=== PATIENT | female | born 1965 | race Hispanic/Latino ===

== ENCOUNTER 2020-01-07 | Emergency (ER) | payer SELFPAY ==
[~2020-01-07] MED LIST: GLIPIZIDE10 M3 PO; HYDROCHLORO25 MG/TAB PO; LISINOP/HCTZ1 TAB PO; LOPID600 MG PO; LORTAB 7.5 PO; METFORMIN1000 MG PO; METFORMIN500 MG PO; MIRENA IU; NAPROXEN500 MG PO; NOVOLIN N1 ML SC; OXYCO/APAP1 TA5 OR; TRICOR145 MG PO; ZESTRIL5 MG PO
[2020-01-07] MEDS ORDERED: ATORVASTATIN CA10 MG PO (04:03)
[2020-01-07 04:52] LABS: HEMATOCRIT 38.1 % (37.0-47.0); HEMOGLOBIN 12.8 g/dl (12.0-16.0); IMMATURE GRANULOCYTES 0.3 % (0.0-5.0); MEAN CELL VOLUME 82.8 fL CALC (80.0-100.0); MEAN CORPUSCULAR HGB 27.8 pG CALC (26.0-32.0); MEAN CORPUSCULAR HGB CONC 33.6 g/dL CAL (32.0-36.0); NEUT# 8.55 thou/uL (2.00-7.15); RED BLOOD COUNT 4.6 mill/uL (4.20-5.60); RED CELL DISTRI WIDTH 13.6 % (11.5-15.5)
[2020-01-07] MEDS ORDERED: MIRALAX3350 N1 PO (04:55)
[2020-01-07 05:09] LABS: ALKALINE PHOSPHATASE 133 u/l (38-126); ANION GAP 19 (6-22 (CALC)); BILIRUBIN, TOTAL 0.7 mg/dL (0.0-1.4); BUN 7 mg/dL (7-17); BUN/CREATININE RATIO 16 (12-20 (CALC)); CARBON DIOXIDE 23 mmol/l (22-30); CHLORIDE 99 mmol/l (95-108); CREATININE 0.4 mg/dL (0.5-1.0); GFR > 60 ML/MIN (>=60 (CALC)); GFR FOR AFR.AMER. > 60 ML/MIN (>=60 (CALC)); POTASSIUM 3.9 mmol/l (3.5-5.1); SGOT/AST 36 u/l (14-36); SODIUM 138 mmol/l (137-146); TOTAL PROTEIN 8.2 g/dL (6.3-8.2)
[2020-01-07 05:17] LABS: ALBUMIN 4.9 g/dL (3.2-5.0)
== END 2020-01-07 05:55 | disposition home or self-care (01) | DRG 392 ==
PROVIDERS: Emergency Medicine
DX: K59.00 Constipation, unspecified (principal); E11.9 Type 2 diabetes mellitus without complications; I10 Essential (primary) hypertension; Z79.84 Long term (current) use of oral hypoglycemic drugs

== ENCOUNTER 2020-11-25 14:52 | Emergency (ER) | payer SELFPAY ==
[~2020-11-25] VITALS: Ht 152.4 cm; Wt 72.7 kg
[~2020-11-25 14:52] MED LIST changes: +ATORVASTATIN CA10 MG PO; +MIRALAX3350 N1 PO
[2020-11-25] MEDS ORDERED: BACTRIM DS1 TAB PO (15:14)
[2020-11-25] MEDS ORDERED: HYDROCO/APAP1 TA9 PO (15:57)
[2020-11-25] MEDS ORDERED: KEFLEX500 MG PO (15:57)
[2020-11-25 16:00] VITALS: BP 129/86
== END 2020-11-25 16:05 | disposition home or self-care (01) | DRG 603 ==
LOC: ED 14:52
PROC: 0H95XZZ Drainage of Chest Skin, External Approach (ICD-10-PCS; principal; 2020-11-25)
DX: L02.213 Cutaneous abscess of chest wall (principal); I10 Essential (primary) hypertension; E11.9 Type 2 diabetes mellitus without complications; Z79.4 Long term (current) use of insulin

== ENCOUNTER 2020-11-26 15:27 | Emergency (ER) | payer SELFPAY ==
[~2020-11-26] VITALS: Ht 152.4 cm; Wt 72.7 kg
[~2020-11-26 15:27] MED LIST changes: +BACTRIM DS1 TAB PO; +HYDROCO/APAP1 TA9 PO; +KEFLEX500 MG PO
[2020-11-26 16:30] VITALS: BP 127/82
== END 2020-11-26 16:30 | disposition home or self-care (01) | DRG 951 ==
LOC: ED 15:27
DX: Z48.01 Encounter for change or removal of surgical wound dressing (principal); E11.9 Type 2 diabetes mellitus without complications; I10 Essential (primary) hypertension; Z79.4 Long term (current) use of insulin

== ENCOUNTER 2020-11-27 23:53 | Emergency (ER) | payer SELFPAY ==
[~2020-11-27] VITALS: Ht 152.4 cm; Wt 73.0 kg
[2020-11-28] VITALS: BP 150/73
== END 2020-11-28 00:50 | disposition home or self-care (01) | DRG 603 ==
LOC: ED 23:53
PROC: 0H95XZZ Drainage of Chest Skin, External Approach (ICD-10-PCS; principal; 2020-11-28)
DX: L02.213 Cutaneous abscess of chest wall (principal); E11.9 Type 2 diabetes mellitus without complications; I10 Essential (primary) hypertension; Z79.4 Long term (current) use of insulin

== ENCOUNTER 2022-11-13 16:36 | Observation (INO) | payer SELFPAY ==
[~2022-11-13] VITALS: Ht 152.4 cm; Wt 70.1 kg
[2022-11-13] VITALS (21 sets, daily range): BP systolic 79–156; BP diastolic 50–88
[~2022-11-13 16:36] MED LIST changes: -ATORVASTATIN CA10 MG PO; +LIPITOR80 M1 PO
--- NOTE | 2022-11-13 17:20 | NUR ---
ASSUMED CARE OF THE PT AT THIS TIME
[2022-11-13 17:40] LABS: BASO% 0.1 % (0-3); HEMATOCRIT 41.2 % (37.0-47.0); HEMOGLOBIN 13.3 g/dl (12.0-16.0); IMMATURE GRANULOCYTES 0.4 % (0.0-5.0); LYMPH% 5.2 % (15-41); MEAN CELL VOLUME 85.8 fL CALC (80.0-100.0); MEAN CORPUSCULAR HGB 27.7 pG CALC (26.0-32.0); MEAN CORPUSCULAR HGB CONC 32.3 g/dL CAL (32.0-36.0); MONO% 6.3 % (2-13); NEUT# 14.86 thou/uL (2.00-7.15); RED BLOOD COUNT 4.8 mill/uL (4.20-5.60); RED CELL DISTRI WIDTH 12.7 % (11.5-15.5)
[2022-11-13 17:55] LABS: ALBUMIN 4.4 g/dL (3.2-5.0); ANION GAP 15 (6-22 (CALC)); BUN 10 mg/dL (7-17); BUN/CREATININE RATIO 16 (12-20 (CALC)); CARBON DIOXIDE 24 mmol/l (22-30); CHLORIDE 96 mmol/l (95-108); CREATININE 0.6 mg/dL (0.5-1.0); GFR FOR AFR.AMER. > 60 ML/MIN (>=60 (CALC)); GFR OTHER RACES > 60 ML/MIN (>=60 (CALC)); LIPASE 144 u/l (23-300); POTASSIUM 4.5 mmol/l (3.5-5.1); SODIUM 132 mmol/l (137-146); TOTAL PROTEIN 8.5 g/dL (6.3-8.2)
[2022-11-13 17:56] LABS: ALKALINE PHOSPHATASE 269 u/l (38-126); BILIRUBIN, TOTAL 1.1 mg/dL (0.02-1.3); SGOT/AST 96 u/l (14-36)
--- NOTE | 2022-11-13 19:30 | NUR ---
PT STILL IN PAIN EDP MADE AWARE NEW ORDERS RECEIVED
[2022-11-13 19:43] LABS: URINE BILIRUBIN - DIPSTICK NEGATIVE (NEGATIVE); URINE BLOOD DIPSTICK SMALL (NEGATIVE); URINE COLOR YELLOW; URINE GLUCOSE - DIPSTICK >=1000 mg/dL (NEGATIVE); URINE KETONE NEGATIVE (NEGATIVE); URINE LEUK ESTERASE NEGATIVE (NEGATIVE); URINE PH 6.5 (4.5-8.0); URINE PROTEIN - DIPSTICK NEGATIVE (NEG-TRACE); URINE SPECIFIC GRAVITY 1.015; URINE UROBILINOGEN - DIPSTICK 0.2 E.U./dL (0.2)
[2022-11-13 19:47] LABS: URINE NITRITE - DIPSTICK NEGATIVE (Negative)
[2022-11-13 19:53] LABS: URINE RBC 0-2 RBC/hpf (0-5)
[2022-11-13 19:54] LABS: URINE SQUAMOUS EPITHELIAL CELL FEW EPI/hpf (0-FEW)
--- NOTE | 2022-11-13 22:23 | NUR ---
PT ADMITTED FROM ER TO MED SURG ROOM 266, PT ACCOMPANIED BY ER NURSE AND PT ILAN, PT IS CZECH SPEAKING ONLY DAUGHTER ACTING TRANSCRIPTION MANAGER. PT ABLE TO AMBULATED FROM STRETCHER TO BED WITH STEADY GAIT (A FEW FEET) SOME ABD GUARDING NOTED.PT STATES PAIN STARTED 4 DAYS AGO AND HAS PROGRESSIVELY GOTTEN WORSE PROMPTING HER TO COME IN TO BE EVALUATED, PT ALSO STATES NAUSEA BUT NO EMESIS, DENIES AND INJURY [place] TRAUMA TO AREA, DENIES DIARRHEA OR CONSTIPATIO LAST BM BEING EARLIER TODAY. SKIN IS WARM DRY AND INTACT PT HAS BILAT 18G IV SITES IN THE RIGHT AND LEFT AC'S. SOME TENDERNESS TO ALL QAUDRANTS NOTED WITH PALPATION, PT DENIES MENSTRUAL CYCLE STATES PAST ONE WAS ABOUT 4 YRS AGO. LIVER ENZYMES MILDLY ELEVATED, AND GLUCOSE 305 PT IS INSULIN DEPENDENT DIABETIC, ALSO HAD GALLBLADDER REMOVED YEARS AGO. PT ORIENTED TO ROOM AND UNIT BLOOD GLUCOSE MONITORING TIMES, ABT AND IVF'S. ALL QUESTIONS ANSWERED PT AND DAUGHTER REQUESTING FOR DAUGHTER TO STAY WITH PT TONIGHT, PERMISSION GRANTED, AND PILLOW AND BLANKET PROVIDED FOR ASA WELL. CALL WADSWORTH WITHIN REACH, WILL CONTINUE TO MONITOR.
--- NOTE | 2022-11-13 22:41 | NUR ---
Admission Note Report Given to: GALLITO RN Transported by: Stretcher Transported with: Nurse Patent IV Location: [facility] [place] RO[facility]
--- NOTE | 2022-11-13 23:00 | NUR ---
PT STATES PAIN REMAINS TOLERABLE AT THIS TIME AND DENIES NEED FOR PAIN MEDICAITON, PT REC'D STAGGER DOSE OF MORPHINE AND HTEN DILAUDID ON ER FOR PENA, DILAUDID SEEMD TO WORK BEST PER PT. DENIES NAUSEA AT THIS TIME, DAUGHTER REMAINS AT BEDSIDE
--- NOTE | 2022-11-13 23:20 | NUR ---
PT STATES PAIN REMAINS TOLERABLE AT THIS TIME AND DENIES NEED FOR PAIN MEDICAITON, PT REC'D 2 DOSES OF MORPHINE AND THEN DILAUDID ON ER FOR PAIN, DILAUDID WORKED BETTER PER PT. DENIES NAUSEA AT THIS TIME, DAUGHTER REMAINS AT BEDSIDE, COMFORT MEASURES PROVIDED, WILL CONTINUE TO MONITOR.
--- NOTE | 2022-11-14 02:37 | NUR ---
Patient resting queitly in bed. Turkish-speaking only. Daughter at bedside and able to interperet. Denies pain at this time. Up to bathroom. Antibiotic and IV fluids initiated and education provided. No IV related complications noted. Safety measures in place.
[2022-11-14 03:00] VITALS: BP 96/48
[2022-11-14 06:06] VITALS: BP 116/46
[2022-11-14 07:17] LABS: BASO% 0.2 % (0-3); IMMATURE GRANULOCYTES 0.2 % (0.0-5.0); LYMPH% 7.7 % (15-41); MEAN CELL VOLUME 87.6 fL CALC (80.0-100.0); MEAN CORPUSCULAR HGB 27.8 pG CALC (26.0-32.0); MEAN CORPUSCULAR HGB CONC 31.8 g/dL CAL (32.0-36.0); MONO% 5.6 % (2-13); NEUT# 16.56 thou/uL (2.00-7.15); NEUT% 86.3 % (42-76); RED BLOOD COUNT 3.95 mill/uL (4.20-5.60); RED CELL DISTRI WIDTH 12.9 % (11.5-15.5)
[2022-11-14 07:27] LABS: ALBUMIN 3.7 g/dL (3.2-5.0); ALKALINE PHOSPHATASE 233 u/l (38-126); ANION GAP 16 (6-22 (CALC)); BILIRUBIN, TOTAL 0.9 mg/dL (0.02-1.3); BUN 11 mg/dL (7-17); BUN/CREATININE RATIO 14 (12-20 (CALC)); CARBON DIOXIDE 22 mmol/l (22-30); CHLORIDE 101 mmol/l (95-108); CREATININE 0.8 mg/dL (0.5-1.0); GFR FOR AFR.AMER. > 60 ML/MIN (>=60 (CALC)); GFR OTHER RACES > 60 ML/MIN (>=60 (CALC)); MAGNESIUM 1.9 mg/dL (1.6-2.3); POTASSIUM 3.7 mmol/l (3.5-5.1); SGOT/AST 42 u/l (14-36); SODIUM 136 mmol/l (137-146); TOTAL PROTEIN 6.8 g/dL (6.3-8.2)
[2022-11-14 08:19] LABS: HEMATOCRIT 34.6 % (37.0-47.0)
--- NOTE | 2022-11-14 10:15 | NUR ---
CONSENT WAS SIGNED FOR EGD WITH NURSE PRESENT. PATIENT STATED UNDERSTANDING OF PROCEDURE. WILL CONTINUE TO MONITOR.
--- NOTE | 2022-11-14 13:00 | NUR ---
PATIENT PICKED UP FOR EGD. FAMILY AT BEDSIDE. ABX AND IV FLUIDS CONNECTED.
[2022-11-14 13:56] VITALS: BP 143/70
[2022-11-14 14:27] VITALS: BP 141/75
--- NOTE | 2022-11-14 15:00 | NUR ---
PATIENT BACK FROM EGD. NURSE TO NURSE REPORT GIVEN. PATIENT ALERT FAMILY AT BEDSIDE. PATIENT WAS TOLERATING ICE CHIPS AT THIS TIME. REGULAR DIET ORDER IN PLACE WILL MONITOR IF TOLERATED. PATIENT REPORTS DISCOMFORT BUT TOLERABLE. WILL CONTINUE TO MONITOR.
--- NOTE | 2022-11-14 16:05 | NUR ---
pt glucose 163 @1600
[2022-11-14 16:51] VITALS: BP 133/75
[2022-11-14 18:13] VITALS: BP 111/59
--- NOTE | 2022-11-14 18:15 | NUR ---
PATIENT WAS ENCOURAGED TO URINATE OUTCOME OF 400ML CLEAR YELLOW WITHOUT DIFFICULTY. PATIENT ABLE TO AMBULATE WITH MINIMAL ASSIST WITH IV POLE. WILL CONTINUE TO MONITOR.
--- NOTE | 2022-11-14 20:00 | NUR ---
RECEIVED REPORT FROM NURSE VALENTIN, PATIENT CROATIAN SPEAKING ONLY,DAUGTER IN ROOM, ONGOING IV NS @ 100CC/HR INFUSING WELL ON RAC G 18, ACTIVE BOWEL SOUNDS, DENIES NAUSEA/VOMITING, C/O HEADACHE AND PAIN ON ABDOMEN PS 6/10, PRN TYLENOL GIVE, WILL REASSESS.
--- NOTE | 2022-11-15 | NUR ---
PATIENT RESTING IN BED, DUE ZOSYN CURRENTLY INFUSING ON RAC BREATHING UNLBAORED CALL LIGHT IN REACH.
[2022-11-15 03:12] VITALS: BP 132/70
--- NOTE | 2022-11-15 04:00 | NUR ---
PATIENT RESTING IN BED, WITH EYES CLOSED, NO DISCOMFORTS NOTED AT THSI TIME, CALL LIGHT IN REACH.
--- NOTE | 2022-11-15 04:24 | NUR ---
PATIENT C/O OF NAUSEA, SMALL AMOUNT OF YELLOWISH GREENISH LIQUID, PRN ZOFRAN GIVEN, CALL LIGHT IN REACH.
[2022-11-15 05:32] LABS: BASO% 0.1 % (0-3); EOS% 0.1 % (0-8); HEMATOCRIT 33.3 % (37.0-47.0); HEMOGLOBIN 10.5 g/dl (12.0-16.0); IMMATURE GRANULOCYTES 0.2 % (0.0-5.0); MEAN CELL VOLUME 87.6 fL CALC (80.0-100.0); MEAN CORPUSCULAR HGB 27.6 pG CALC (26.0-32.0); MEAN CORPUSCULAR HGB CONC 31.5 g/dL CAL (32.0-36.0); MONO% 5.4 % (2-13); NEUT# 14.57 thou/uL (2.00-7.15); NEUT% 88.2 % (42-76); RED BLOOD COUNT 3.8 mill/uL (4.20-5.60)
[2022-11-15 05:54] LABS: ALBUMIN 3.6 g/dL (3.2-5.0); ALKALINE PHOSPHATASE 295 u/l (38-126); ANION GAP 13 (6-22 (CALC)); BILIRUBIN, TOTAL 0.6 mg/dL (0.02-1.3); BUN 10 mg/dL (7-17); BUN/CREATININE RATIO 15 (12-20 (CALC)); CARBON DIOXIDE 25 mmol/l (22-30); CHLORIDE 101 mmol/l (95-108); CREATININE 0.7 mg/dL (0.5-1.0); GFR FOR AFR.AMER. > 60 ML/MIN (>=60 (CALC)); GFR OTHER RACES > 60 ML/MIN (>=60 (CALC)); MAGNESIUM 2.1 mg/dL (1.6-2.3); POTASSIUM 3.3 mmol/l (3.5-5.1); SGOT/AST 35 u/l (14-36); SODIUM 136 mmol/l (137-146); TOTAL PROTEIN 7.1 g/dL (6.3-8.2)
[2022-11-15 05:57] VITALS: BP 132/64
[2022-11-15 08:00] VITALS: BP 132/64
--- NOTE | 2022-11-15 08:00 | NUR ---
Alert and oriented patient x3. Assessment head-to-toe complete. Patient refer pain at the time of this note. Good heart and respiratory rhythm at the time of this note. Patient is educated about medications, nursing plan and possible discharge for today. Patient refers to understanding. Safety and fall precautions in place. Call light within in reach.
--- NOTE | 2022-11-15 08:00 | NUR ---
Receive report from Tijerina RN.
[2022-11-15] MEDS ORDERED: PROTONIX40 M2 PO (10:10)
[2022-11-15] MEDS ORDERED: TRAMADOL HCL50 MG PO (10:11)
[2022-11-15] MEDS ORDERED: CARAFATE PO (10:11)
[2022-11-15 10:17] VITALS: BP 156/72
[2022-11-15] MEDS ORDERED: METRONIDAZOLE500 MG PO (11:32)
[2022-11-15] MEDS ORDERED: CIPROFLOXACN500 MG PO (11:32)
--- NOTE | 2022-11-15 12:26 | NUR ---
Patient resting in bed. Stable at the time of this note. Safety and fall precautions in place. Pt discharged today.
--- NOTE | 2022-11-15 15:07 | NUR ---
Discharge instructions given. Patient verbalizes understanding of same. Discharged in stable condition via Wheelchair to Home with staff. All belongings sent with pt.
== END 2022-11-15 15:08 | disposition home or self-care (01) | DRG 384 ==
LOC: ED 16:36 → MS2 20:11
PROVIDERS: Family Medicine; Nurse Practitioner Family; ADMIT Internal Medicine; ATTEND Internal Medicine
PROC: 0DB68ZX Excision of Stomach, Via Natural or Artificial Opening Endoscopic, Diagnostic (ICD-10-PCS; principal; 2022-11-14)
DX: K25.9 Gastric ulcer, unspecified as acute or chronic, without hemorrhage or perforation (principal); K29.71 Gastritis, unspecified, with bleeding; R74.8 Abnormal levels of other serum enzymes; I10 Essential (primary) hypertension; E11.9 Type 2 diabetes mellitus without complications; E78.5 Hyperlipidemia, unspecified; Z79.84 Long term (current) use of oral hypoglycemic drugs; Z79.4 Long term (current) use of insulin; Z90.49 Acquired absence of other specified parts of digestive tract; Z20.822 Contact with and (suspected) exposure to COVID-19; K44.9 Diaphragmatic hernia without obstruction or gangrene
CPT/HCPCS: G0378; Q9967; S0164